=== PATIENT | female | born 1985 | race Caucasian/White ===

== ENCOUNTER 2022-10-10 10:01 | Emergency (ER) | payer MEDICAID ==
[~2022-10-10] VITALS: Ht 160 cm; Wt 72.6 kg
--- NOTE | 2022-10-10 10:20 | NUR ---
IV LINE ESTABLISHED ON RAC #20, BLOOD DRAWN AND COLLECTED BY PHLEB AT BEDSIDE.
--- NOTE | 2022-10-10 10:20 | NUR ---
c/o nausea and vomiting x2 since yesterday
[2022-10-10] MEDS ORDERED: ONDANSETRON HCL/PF 4 MG/2 ML VIAL ONE (10:25)
[2022-10-10] MEDS ORDERED: IV NS 0.9% 1,000 ML IV ONE (10:30)
[2022-10-10] MEDS ORDERED: ONDANSETRON HCL/PF 4 MG/2 ML VIAL IV ONE (10:30)
[2022-10-10 10:31] LABS: BASOPHILS % (AUTO) 0.4 % (0.0-2.0); EOSINOPHILS % (AUTO) 1.7 % (0.0-6.0); HEMATOCRIT 39 % (33-45); HEMOGLOBIN 13.1 g/dL (11.5-14.8); LYMPHOCYTES # (AUTO) 0.8 K/uL (0.8-4.8); LYMPHOCYTES % (AUTO) 9.2 % (20.0-44.0); MEAN CORPUSCULAR HGB CONC 34 g/dl (31.0-36.0); MEAN CORPUSCULAR VOLUME 90 fL (82-100); MONOCYTES # (AUTO) 0.3 K/uL (0.1-1.30); MONOCYTES % (AUTO) 3.6 % (2.0-12.0); NEUTROPHILS # (AUTO) 7.7 K/uL (1.8-8.9); NEUTROPHILS % (AUTO) 85.1 % (43.0-81.0); PLATELET COUNT (AUTO) 226 K/uL (150-450); RED BLOOD CELL COUNT(AUTO) 4.33 MIL/uL (4.0-5.2)
--- NOTE | 2022-10-10 10:31 | NUR ---
PT COMPLAINT OF PAIN. DR BERGER MADE AWARE W/ ORDER FOR TYLENOL 1000MG FOR NOW AND AWAIT TEST RESULT. ORDER READ BACK AND VERIFIED.
[2022-10-10] MEDS ORDERED: ACETAMINOPHEN ES 500 MG TABLET ONE (10:35)
[2022-10-10 10:57] LABS: ALBUMIN 3.7 g/dL (3.4-5.0); BILIRUBIN,DIRECT 0.1 mg/dL (0.0-0.2); BILIRUBIN,TOTAL 0.5 mg/dL (0.2-1.0); CREATININE 0.8 mg/dL (0.6-1.3); POTASSIUM 3.5 mmol/L (3.5-5.1); TOTAL PROTEIN, SERUM 7.7 g/dL (6.4-8.2)
[2022-10-10] MEDS ORDERED: ACETAMINOPHEN ES 500 MG TABLET PO ONE (11:00)
[2022-10-10 11:01] LABS: BILIRUBIN,URINE NEGATIVE (NEGATIVE); COLOR,URINE RED (YELLOW); LEUKOCYTE ESTERASE ,URINE TRACE (NEGATIVE); NITRITE, URINE POSITIVE (NEGATIVE); PROTEIN,URINE 2+ mg/dl (NEGATIVE); UGLUCOSE NEGATIVE (NEGATIVE)
[2022-10-10 11:08] LABS: BACTERIA,URINE None seen /HPF (None Seen); RBC,URINE TOO NUMEROUS TO COUN /HPF (0-2); SQUAMOUS EPITHELIAL CELL,UR Few /HPF (None Seen); WBC,URINE 0-2 /HPF (0-3)
[2022-10-10] MEDS ORDERED: KETOROLAC TROMETHAMINE INJ 30 MG/ML VIAL IV ONE (11:30)
[2022-10-10] MEDS ORDERED: KETOROLAC TROMETHAMINE 15 MG/ML VIAL ONE (11:46)
[2022-10-10] MEDS ORDERED: ONDA4TAB11 PO (12:09)
--- NOTE | 2022-10-10 13:02 | NUR ---
IV removed. Catheter intact and site benign. Pressure and 4x4 applied to site. No bleeding noted.
[2022-10-10 13:03] VITALS: BP 118/64
--- NOTE | 2022-10-10 13:03 | NUR ---
Patient discharged to home in stable condition. Written and verbal after care instructions given. Patient verbalizes understanding of instruction.
== END 2022-10-10 13:03 | disposition home or self-care (01) ==
LOC: ER 10:05
DX: N94.6 Dysmenorrhea, unspecified (principal); R11.2 Nausea with vomiting, unspecified
CPT/HCPCS: 99284; 96374; 96361; 96375; 85025; 80048; 87086; 83690; 80076; 81001; 36415; 82962; 84702; J2405; J7030; J1885